=== PATIENT | male | born 1990 | race Caucasian/White ===

== ENCOUNTER 2018-01-13 11:44 | Emergency (ER) | payer OTHER ==
--- NOTE | 2018-01-13 12:37 | EDM.PDOC ---
ED HPI GENERAL MEDICAL PROBLEM - General Chief Complaint: Lower Extremity Injury/Pain Stated Complaint: METAL STUCK IN RT LEG Time Seen by Provider: 01/13/18 12:31 Source of Information: Reports: Patient History Limitations: Reports: No Limitations - History of Present Illness INITIAL COMMENTS - FREE TEXT/NARRATIVE: HISTORY AND PHYSICAL: []27-year-old male presenting for a days of metal to be taken out of his right lower leg History of Present Illness: []December 02 this gentleman was carrying a piece of steel and there was a frayed edge and the steel stuck in his leg He was seen in [facility] given a tetanus shot antibiotics after probing and unable to obtain the steel out of his leg he was told when this starts to "poke out" to return and have this removed Review of Systems: As per history of present illness and below otherwise all systems reviewed and negative. Past medical history: As per history of present illness and as reviewed below otherwise noncontributory. Surgical history: As per history of present illness and as reviewed below otherwise noncontributory. Social history: No reported history of drug or alcohol abuse. Family history: As per history of present illness and as reviewed below otherwise noncontributory. Physical exam: Alert and oriented male answering questions appropriately is not in any distress Betadine solution to this area where a small protrusion is noted. Small hemostat utilized and able to clamp onto the end of this and a 1-1/2 inch was removed. This is then in circumference. No bleeding is noted from the site HEENT: Atraumatic, normocehpalic, pupils reactive, negative for conjunctival pallor or scleral icterus, mucous membranes moist, throat clear, neck supple, nontender, trachea midline. Lungs: Clear to auscultation, breath sounds equal bilaterally, chest non tender. Heart: S1S2, regular, negative for clicks, rubs, or JVD. Abdomen: Soft, nondistended, nontender. Negative for masses or hepatossplenmegaly. Negative for costovertebral tenderness. Pelvis: Stable nontender. Genitourinary: Deferred. Rectal: Deferred Extremities: Atraumatic, negative for cords or calf pain. Neurovascular unremarkable. Neuro: Awake, alert, oriented. Cranial nerves II through XII unremarkable. Cerebellum unremarkable. Motor and sensory unremarkable throughout. Exam nonfocal. Diagnostics: [] Therapeutics: []Foreign body removed Impression: []Foreign body to right lower leg Plan: []Discharge home epsom saltwater compresses tid return as needed and discussed Definitive disposition and diagnosis as appropriate pending reevaluation and review of above. Onset: Sudden - Related Data Allergies Allergy/AdvReac Type Severity Reaction Status Date / Time No Known Allergies Allergy Verified 01/13/18 12:25 Home Meds: Home Meds . [No Known Home Meds] 12/01/17 [History] Past Medical History Other Dermatologic History: "had leg cut open when piece of metal first went in " Social & Family History - Family History Family Medical History: Noncontributory - Tobacco Use Smoking Status *Q: Current Every Day Smoker Years of Tobacco use: 1 Packs/Tins Daily: 1 Used Tobacco, but Quit: Yes Month/Year Tobacco Last Used: 03/2013 - Caffeine Use Caffeine Use: Reports: Coffee, Energy Drinks, Soda, Tea - Recreational Drug Use Recreational Drug Use: No Review of Systems - Review of Systems Review Of Systems: ROS reveals no pertinent complaints other than HPI. ED EXAM, GENERAL - Physical Exam Exam: See Below (see dictation) ED TRAUMA EXTREMITY PROCEDURES - Foreign Body Removal Consent Obtained: Patient Foreign Body Other Location Comment:: Left lower lateral leg Anesthesia Type: None Complications:: No Course - Vital Signs Last Recorded V/S: Last Vital Signs Temp 36.8 C 01/13/18 12:20 Pulse 52 L 01/13/18 12:20 Resp 16 01/13/18 12:20 BP 119/65 01/13/18 12:20 Pulse Ox 98 01/13/18 12:20 Departure - Departure Time of Disposition: 12:36 Disposition: Home, Self-Care 01 Clinical Impression: Foreign body (FB) in soft tissue - Discharge Information Referrals: PCP,None [Primary Care Provider] - Additional Instructions: The following information is given to patients seen in the emergency department who are being discharged to home. This information is to outline your options for follow-up care. We provide all patients seen in our emergency department with a follow-up referral. The need for follow-up, as well as the timing and circumstances, are variable depending upon the specifics of your emergency department visit. If you don't have a primary care physician on staff, we will provide you with a referral. We always advise you to contact your personal physician following an emergency department visit to inform them of the circumstance of the visit and for follow-up with them and/or the need for any referrals to a consulting specialist. The emergency department will also refer you to a specialist when appropriate. This referral assures that you have the opportunity for followup care with a specialist. All of these measure are taken in an effort to provide you with optimal care, which includes your followup. Under all circumstances we always encourage you to contact your private physician who remains a resource for coordinating your care. When calling for followup care, please make the office aware that this follow-up is from your recent emergency room visit. If for any reason you are refused follow-up, please contact the [facility] emergency department at and asked to speak to the emergency department charge nurse. Return if any signs of infection should occur Angieon salts hot water compresses 3 times daily May follow up with your primary care provider next week
== END 2018-01-13 12:53 | disposition home or self-care (01) ==
LOC: MW.ED 11:44
DX: S80.851A Superficial foreign body, right lower leg, initial encounter (principal); W45.8XXA Other foreign body or object entering through skin, initial encounter
CPT/HCPCS: 99282